=== PATIENT | male | born 1955 | race Caucasian/White ===

== ENCOUNTER 2021-06-05 12:38 | Emergency (ER) | payer BC, SELFPAY ==
[2021-06-05] VITALS (8 sets, daily range): BP systolic 113–160; BP diastolic 81–101; PULSE 55–99; RESP 16–18; TEMP 36.2; O2SAT 95–99; BMI 24.3
--- NOTE | 2021-06-05 13:05 | CTR_ITS ---
PROCEDURE INFORMATION: Exam: CTA Chest With Contrast Exam date and time: 06/05/2021 1:05 PM Age: 65 years old Clinical indication: Shortness of breath; Patient HX: Weakness w lle dvt; Additional info: L le dvt; Fatigue, SOB TECHNIQUE: Imaging protocol: Computed tomographic angiography of the chest with contrast. 3D rendering (Not supervised by radiologist): MIP and/or 3D reconstructed images were created by the technologist. Radiation optimization: All CT scans at this facility use at least one of these dose optimization techniques: automated exposure control; mA and/or kV adjustment per patient size (includes targeted exams where dose is matched to clinical indication); or iterative reconstruction. Contrast material: OMNI 350; Contrast volume: 74 ml; Contrast route: INTRAVENOUS (IV); COMPARISON: CR (CHEST, ) 06/05/2021 1:21 PM RADIATION DOSE METRICS: Total DLP (mGy-cm): 576.62 FINDINGS: Pulmonary arteries: Normal. No pulmonary emboli. Aorta: Unremarkable. No aortic aneurysm. No aortic dissection. Lungs: [id number] centrilobular and paraseptal emphysematous changes of the lungs noted in the upper lobes. Mild bilateral bronchiectasis at the hilum. No consolidation. 4 mm pulmonary nodule in the right upper lobe series 2, image 117. No masses. Pleural spaces: Unremarkable. No pneumothorax. No pleural effusion. Heart: Unremarkable. No cardiomegaly. No pericardial effusion. Lymph nodes: Unremarkable. No enlarged lymph nodes. Bones/joints: No acute fracture. Soft tissues: Unremarkable. CT/CT angio chest PE protcl [id number] IMPRESSION: 1. Negative for pulmonary embolism. No acute intrathoracic findings. 2. Bwsx-kh-eyfwafwu emphysematous changes of the upper lobes. 4 mm pulmonary nodule in the right upper lobe. Per Fleischner criteria would recommend 12 month follow-up CT chest to evaluate for interval change. Radiation Dose CTDIVOL = (mGy): DLP = 576.62 (mGy-cm)
--- NOTE | 2021-06-05 13:05 | ECG_ITS ---
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 Measurements Intervals [place] Rate: 61 P: 33 DC: 189 QRS: 43 QRSD: 88 T: 55 QT: 401 QTc: 405 Interpretive Statements SINUS RHYTHM ST ELEVATION, PROBABLY EARLY REPOLARIZATION [ST ELEVATION WITH NORMALLY INFLECTED T-WAVE] No previous ECG available for comparison Electronically Signed On 06-05-2021 20:51:24 CDT by Flaquita Willis M.D. [id number]
--- NOTE | 2021-06-05 13:06 | ED_ITS ---
HPI - General Adult General: Chief complaint: General Medical Stated complaint: disoriteted, weak, lethargic, clot in L leg Time Seen by Provider: 06/05/21 12:50 Source: patient and family () Mode of arrival: ambulatory Limitations: no limitations History of Present Illness: HPI narrative: Patient is a nice 65-year-old male who presents to ED today along with his for complaints of severe fatigue and weakness. Patient tells me approximately a week ago he went to his PCP with concerns of some swelling and palpable lumps to his left lower extremity. He states he was diagnosed with a blood clot and placed on warfarin (states insurance would not cover Xarelto/Eliquis). He reports blood clot was provoked as he had recently had a 9-hour car ride. Patient states since that time he has felt extremely fatigued and weak. He reportedly has trouble explaining his symptoms but states he gets intermittent episodes of feeling winded and has what feels like body flushing. States sometimes he feels slightly disoriented. Patient has continued to work all week but states he has just felt very tired. He has not had any vomiting, dark stools, abdominal pain, or unusual bleeding/bruising. He had an episode of sharp chest pain this AM after coughing that just lasted a few seconds and subsided. Denies CONRAD or visual changes or trouble with gait. Onset (ago): day(s) Associated symptoms: Reports chest pain (sharp pain this AM with coughing; subsided now) and dyspnea; Deny headache(s), nausea, rash, palpitations, syncope or vomiting Review of Systems Const: Reports: fatigue; Denies: fever(s), chills, body aches, change in appetite or change in weight Eyes: Denies: change in vision, blurry vision, photophobia or floaters ENMT: Denies: throat pain, odynophagia, nasal discharge or nasal congestion Card: Reports: chest pain (sharp pain this AM with coughing; subsided now) and dyspnea on exertion; Denies: palpitations, irregular heart rhythm, edema, swelling of feet/ankles, syncope, pre-syncope or orthopnea Resp: Reports: dyspnea; Denies: productive cough, non-productive cough, pain on inspiration, hemoptysis or chest congestion GI: Denies: abdominal pain, nausea, vomiting or diarrhea : Denies: flank pain, dysuria or hematuria Musc: Reports: extremity pain (L LE) and extremity swelling (L calf); Denies: neck pain, back pain, joint pain or joint swelling Skin/Breast: Denies: rash Neuro: Denies: headache(s), numbness in extremities, weakness in extremities, sensory changes, difficulty walking, dizziness or Slurred speech present Physical Exam Const: COMMON NORMALS: no acute distress, average body habitus, patient oriented x3, no limitations, healthy appearing, alert and well nourished ORIENTATION/CONSCIOUSNESS: Yes oriented to person, Yes oriented to place and Yes oriented to time HENMT: COMMON NORMALS: normocephalic and atraumatic HEAD & SCALP: normocephalic and atraumatic Chest: COMMONS NORMALS: normal inspection of the chest and normal palpation of entire chest wall Resp: COMMON NORMALS: normal respiratory effort and clear to auscultation bilaterally AUSCULTATION: clear to auscultation bilaterally Cardio: COMMON NORMALS: regular rate and regular rhythm RATE: regular rate RHYTHM: regular rhythm GI: COMMON NORMALS: Normal to inspection, nondistended, normoactive bowel sounds present, Soft to palpation, non-tender, No hepatosplenomegaly present and no masses PALPATION: Yes Soft to palpation and Yes No hepatosplenomegaly present Extremity: GENERAL: Yes normal exam except as noted OTHER: varicosities to bilateral LEs; TTP and swelling noted to L calf; TTP along medial thigh Neuro: ZULLY COMA SCALE: document GCS findings Zully coma scale eye opening: Spontaneous [place] coma scale verbal response: Orientated Zully coma scale motor response: Obey commands Zully coma scale total score: 15 COMMON NORMALS: patient oriented x3, CN's II-XII intact bilaterally, moves all extremities, no focal motor deficits, no sensory deficits noted and gait normal SENSORIUM/ORIENTATION: Yes alert, Yes oriented to person, Yes oriented to place and Yes oriented to time SPEECH: speech normal GAIT: Yes Normal gait present MOTOR EXAM: 5/5 motor strength present throughout Skin: COMMON NORMALS: no rashes or lesions noted GENERAL SKIN EXAM: no rashes or lesions noted TRAUMA: no lacerations or abrasions Course Vital Signs: Vital signs: Vital Signs Temperature 97.2 F L 06/05/21 12:39 Pulse Rate 60 06/05/21 17:00 Respiratory Rate 18 06/05/21 17:00 Blood Pressure 132/90 06/05/21 17:00 Pulse Oximetry 98 06/05/21 17:00 MDM - General Adult MDM Narrative: Medical decision making narrative: Patient here with complaints of generalized fatigue. He has no acute neurologic deficits on his exam. He reportedly was diagnosed with a left lower extremity DVT approximately a week ago and placed on warfarin. Ultrasound results unfortunately cannot be verified as it was completed at a clinic in [place] that is not open on Saturdays. His INR today is therapeutic. Patient's vital signs are stable. His labs including CBC, CMP, CPK, troponin are non concerning. EKG shows no ischemic changes. CXR is normal. CTA imaging obtained secondary to known left lower extremity DVT and complaints of feeling winded . This was negative for pulmonary embolus. Incidental small right upper lobe nodule noted-patient made aware of results to discuss with PCP. His rapid COVID is negative. At this time I feel patient is stable for discharge from the ED but I did recommend following up with primary care for further evaluation-patient verbalizes agreement. Return to ED precautions given. Lab Data: Labs: Lab Results 06/05/21 06/05/21 06/05/21 Range/Units 13:24 13:24 13:24 WBC 7.4 (4.0-10.0) 10^3/ uL RBC 5.49 H (4.1-5.3) 10^6/u L Hgb 16.0 (11.7-16.6) g/dL Hct 47.5 (42.0-52.0) % MCV 86.5 (80-94) fl MCH 29.1 (28.0-34.0) pg MCHC 33.7 (30.0-36.0) g/dL RDW 11.6 L (12.1-15.1) % Plt Count 217 (130-400) 10^3/c mm MPV 9.6 (7.4-10.4) fL Neut % (Auto) 68.8 % Lymph % (Auto) 16.7 % [place] % (Auto) 6.5 % Eos % (Auto) 6.9 % Baso % (Auto) 0.8 % Neut # (Auto) 5.06 (1.8-7.7) 10^3/u L Lymph # (Auto) 1.2 (0.8-4.8) 10^3/u L [place] # (Auto) 0.5 (0.2-0.9) 10^3/u L Eos # (Auto) 0.5 (0.0-0.8) 10^3/u L Baso # (Auto) 0.1 (0.0-0.1) 10^3/u L Nucleated RBC % (a uto) 0 % Nucleated RBCs # 0.0 /100WBC PT 26.10 H (12.1-14.9) SECO NDS INR 2.34 H (0.8-1.2) Sodium 140 (136-145) mmol/L Potassium 4.0 (3.5-5.1) mmol/L Chloride 106 (98-107) mmol/L Carbon Dioxide 24 (22-29) mmol/L Anion Gap 14.0 (5-19) BUN 23 (8-23) mg/dL Creatinine 0.7 (0.7-1.2) mg/dL GFR Calculation 113.9 (90-130) mL/min Glucose 104 (65-115) mg/dL Calculated Osmolal ity 294 (285-295) mOsm/k g Calcium 9.1 (8.5-10.5) mg/dL Total Bilirubin 0.2 (0.15-1.2) mg/dL AST 29 (0-40) U/L ALT 22 (0-41) U/L Alkaline Phosphata se 87 (40-130) IU/L Creatine Kinase 219 (39-308) U/L CK-MB (CK-2) 5.8 (0-10.4) ng/mL CK-MB (CK-2) Rel I ndex (0.0-5.3) % Troponin T Baselin e (0-15) ng/L Troponin T 120 Min [place] (0-15) ng/L Delta Troponin T (0-10) ABS# Total Protein 7.2 (6.6-8.7) g/dL Albumin 4.4 (3.5-5.2) g/dL Globulin 2.8 (1.3-4.6) g/dL SARS-CoV-2 Ag (Rap id) (Negative) 06/05/21 06/05/21 06/05/21 Range/Units 13:24 13:24 15:43 WBC (4.0-10.0) 10^3/ uL RBC (4.1-5.3) 10^6/u L Hgb (11.7-16.6) g/dL Hct (42.0-52.0) % MCV (80-94) fl MCH (28.0-34.0) pg MCHC (30.0-36.0) g/dL RDW (12.1-15.1) % Plt Count (130-400) 10^3/c mm MPV (7.4-10.4) fL Neut % (Auto) % Lymph % (Auto) % [place] % (Auto) % Eos % (Auto) % Baso % (Auto) % Neut # (Auto) (1.8-7.7) 10^3/u L Lymph # (Auto) (0.8-4.8) 10^3/u L [place] # (Auto) (0.2-0.9) 10^3/u L Eos # (Auto) (0.0-0.8) 10^3/u L Baso # (Auto) (0.0-0.1) 10^3/u L Nucleated RBC % (a uto) % Nucleated RBCs # /100WBC PT (12.1-14.9) SECO NDS INR (0.8-1.2) Sodium (136-145) mmol/L Potassium (3.5-5.1) mmol/L Chloride (98-107) mmol/L Carbon Dioxide (22-29) mmol/L Anion Gap (5-19) BUN (8-23) mg/dL Creatinine (0.7-1.2) mg/dL GFR Calculation (90-130) mL/min Glucose (65-115) mg/dL Calculated Osmolal ity (285-295) mOsm/k g Calcium (8.5-10.5) mg/dL Total Bilirubin (0.15-1.2) mg/dL AST (0-40) U/L ALT (0-41) U/L Alkaline Phosphata se (40-130) IU/L Creatine Kinase (39-308) U/L CK-MB (CK-2) (0-10.4) ng/mL CK-MB (CK-2) Rel I ndex (0.0-5.3) % Troponin T Baselin e 12 (0-15) ng/L Troponin T 120 Min [place] 13.24 (0-15) ng/L Delta Troponin T 1.24 (0-10) ABS# Total Protein (6.6-8.7) g/dL Albumin (3.5-5.2) g/dL Globulin (1.3-4.6) g/dL SARS-CoV-2 Ag (Rap id) Negative (Negative) Imaging Data^: CXR: Radiologist's impression: [facility] [address] [place] [id number] [place], [place] [address]QHsd ReportSigned Patient: Deneen Samaniego #: [id number]: 1955cct#:[id number]/Sex: 65 / MADM Date: 06/05/21Loc: ERRoom/Bed:Attending Dr: Ordering Provider/Ordering MD: Lary Hernandez Date of Service: 06/05/21 Procedure(s): XR chest 1V portable [id number] Accession Number(s): [id number] Report Number: [id number] PROCEDURE INFORMATION: Exam: XR Chest Exam date and time: 06/05/2021 1:05 PM Age: 65 years old Clinical indication: Shortness of breath and other: Weakness; Patient HX: C/O weakness and SOB; Additional info: Chest pain, SOB TECHNIQUE: Imaging protocol: XR of the chest. Views: 1 view. COMPARISON: No relevant prior studies available. FINDINGS: Lungs: Mild bronchiectasis noted at the right hilar region. No consolidation. Pleural spaces: Unremarkable. No pleural effusion. No pneumothorax. Heart/Mediastinum: Unremarkable. No cardiomegaly. Bones/joints: Unremarkable. XR/XR chest 1V portable [id number] IMPRESSION: No acute findings. Dictated By:Noble Kaplan DOSigned By:Noble Kaplan DOSigned Date/Time:06/05/21 1448DD/ 1446 CTA Chest: My impression: Report not generated in [employer]-had to be printed from [employer]. Radiologist's impression: FINDINGS: Pulmonary arteries: Normal. No pulmonary emboli. Aorta: Unremarkable. No aortic aneurysm. No aortic dissection. Lungs: [id number] centrilobular and paraseptal emphysematous changes of the lungs noted in the upper lobes. Mild bilateral bronchiectasis at the hilum. No consolidation. 4 mm pulmonary nodule in the right upper lobe series 2, image 117. No masses. Pleural spaces: Unremarkable. No pneumothorax. No pleural effusion. Heart: Unremarkable. No cardiomegaly. No pericardial effusion. Lymph nodes: Unremarkable. No enlarged lymph nodes. Bones/joints: No acute fracture. Soft tissues: Unremarkable. IMPRESSION: 1. Negative for pulmonary embolism. No acute intrathoracic findings. 2. [id number]-kwklmkqb emphysematous changes of the upper lobes. 4 mm pulmonary nodule in the right upper lobe. Per Fleischner criteria would recommend 12 month follow-up CT chest to evaluate for interval change. EKG Data^: EKG 1: EKG interpretation date: 06/05/21 EKG interpretation time: 14:08 Interpretation: Sinus rhythm Rate 61 ST elevation consistent with early repolarization Computer generated interpretation: Chest X-Ray 06/05/21 13:05 IMPRESSION: No acute findings. EKG 2: EKG interpretation date: 06/05/21 EKG interpretation time: 15:06 Interpretation: Sinus rhythm Rate 53 ST elevation consistent with early repolarization No changes when compared to EKG performed earlier on same visit Computer generated interpretation: Chest X-Ray 06/05/21 13:05 IMPRESSION: No acute findings. Discharge Plan Discharge Patient Disposition: Home Clinical Impression: Fatigue Qualifiers: Fatigue type: unspecified Qualified Code(s): R53.83 - Other fatigue Condition: Stable Prescriptions: No Action warfarin 5 mg tablet 5 mg PO DAILY RF: 0 warfarin 1 mg tablet 1 mg PO .MONDAY AND MONDAY RF: 0 Discharge Orders: Discharge ED (Routine); Ordered 06/05/21 Ordered By: Lary Hernandez Referrals: Juan R Poe [Primary Care Provider] - Patient Instructions: Fatigue (ED) Activity Restrictions/Additional Instructions: As we discussed please follow-up with your primary care provider next week for re-evaluation and further evaluation of your fatigue. As we discussed your INR is therapeutic. Please continue your current dose of warfarin. As we discussed your CTA showed a very small right upper lung nodule with recommendations for repeat CT in 12 months. 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
[2021-06-05 13:42] LABS: Basophils # 0.1 10^3/uL (0.0-0.1); Basophils % 0.8 %; Eosinophils # 0.5 10^3/uL (0.0-0.8); Eosinophils % 6.9 %; Hematocrit 47.5 % (42.0-52.0); Lymphocytes # 1.2 10^3/uL (0.8-4.8); Lymphocytes % 16.7 %; Mean Corpuscular HGB Conc 33.7 g/dL (30.0-36.0); Mean Corpuscular Hemoglobin 29.1 pg (28.0-34.0); Mean Corpuscular Volume 86.5 fl (80-94); Mean Platelet Volume 9.6 fL (7.4-10.4); Monocytes # 0.5 10^3/uL (0.2-0.9); Monocytes % 6.5 %; Neutrophils # 5.06 10^3/uL (1.8-7.7); Neutrophils % 68.8 %; Nucleated Red Blood Cells % 0 %; Platelet Count 217 10^3/cmm (130-400); Red Blood Count 5.49 10^6/uL (4.1-5.3); Red Cell Distribution Width 11.6 % (12.1-15.1); White Blood Count 7.4 10^3/uL (4.0-10.0)
[2021-06-05 14:12] LABS: SARS Covid-2 Antigen Negative (Negative); Troponin(5th) Baseline 12 ng/L (0-15)
[2021-06-05] MEDS: iohexol 350 mg/mL 100 mL Btl IV (14:22)
[2021-06-05 14:25] LABS: INR 2.34 (0.8-1.2)
[2021-06-05 14:39] LABS: Alanine Aminotransferase 22 U/L (0-41); Albumin Level 4.4 g/dL (3.5-5.2); Alkaline Phosphatase 87 IU/L (40-130); Aspartate Amino Transferase 29 U/L (0-40); Blood Urea Nitrogen 23 mg/dL (8-23); Calcium 9.1 mg/dL (8.5-10.5); Carbon Dioxide 24 mmol/L (22-29); Chloride 106 mmol/L (98-107); Creatine Phosphokinase 219 U/L (39-308); Creatinine Clr Calc Pharmacy 110.5457; Globulin 2.8 g/dL (1.3-4.6); Glomerular Filtration Rate 113.9 mL/min (90-130); Glucose 104 mg/dL (65-115); Osmolality Calculated 294 mOsm/kg (285-295); Sodium 140 mmol/L (136-145); Total Bilirubin 0.2 mg/dL (0.15-1.2); Total Protein 7.2 g/dL (6.6-8.7)
--- NOTE | 2021-06-05 15:05 | ECG_ITS ---
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 Measurements Intervals [place] Rate: 53 P: 38 ID: [id number] QRS: 39 QRSD: 92 T: 49 QT: 416 QTc: 393 Interpretive Statements SINUS BRADYCARDIA Compared to ECG 06/05/2021 14:08:59 Sinus rhythm no longer present ST (T wave) deviation no longer present Early repolarization no longer present Electronically Signed On 06-05-2021 20:53:56 CDT by Flaquita Willis M.D. [id number]
[2021-06-05 15:10] LABS: CKMB 5.8 ng/mL (0-10.4)
[2021-06-05 16:41] LABS: Troponin 5 2HR 13.24 ng/L (0-15); Troponin 5 2HR Delta 1.24 ABS# (0-10)
== END 2021-06-05 17:00 | disposition home or self-care (01) ==
PROVIDERS: Emergency Provider Physician Assistant; PCP Physician Assistant Medical
DX: R53.83 Other fatigue (principal); Z79.01 Long term (current) use of anticoagulants; Z86.718 Personal history of other venous thrombosis and embolism; Z20.822 Contact with and (suspected) exposure to COVID-19
CPT/HCPCS: 36415; 71045; 71275; 80053; 82550; 82553; 84484; 85025; 85610; 87426; 93005; 99283; Q9967

== ENCOUNTER 2022-04-17 18:14 | Emergency (ER) | payer BC, SELFPAY ==
[2022-04-17 18:37] VITALS: BP 158/96; PULSE 69; RESP 16; TEMP 36.3; O2SAT 98; BMI 23.9
[2022-04-17 18:51] VITALS: BP 156/94; PULSE 61; RESP 16; O2SAT 98
--- NOTE | 2022-04-17 18:54 | CTR_ITS ---
PROCEDURE INFORMATION: Exam: CT Head Without Contrast Exam date and time: 04/17/2022 7:07 PM Age: 66 years old Clinical indication: Pain; Headache not specified; Patient HX: H/a, RT sided head and arm sensations for 3 days. Hot flashes; Paresthesias TECHNIQUE: Imaging protocol: Computed tomography of the head without contrast. Radiation optimization: All CT scans at this facility use at least one of these dose optimization techniques: automated exposure control; mA and/or kV adjustment per patient size (includes targeted exams where dose is matched to clinical indication); or iterative reconstruction. COMPARISON: No relevant prior studies available. RADIATION DOSE METRICS: Total DLP (mGy-cm): 790.5 FINDINGS: Brain: Periventricular and subcortical white matter low densities are present which at this age likely represent microvascular ischemic change. Cerebral ventricles: No ventriculomegaly. Paranasal sinuses: There is mucosal thickening of the paranasal sinuses. A small air-fluid levels present in the right frontal sinus. Mastoid air cells: Right mastoid air cells are underpneumatized. Bones/joints: Unremarkable. No acute fracture. Soft tissues: Unremarkable. Vasculature: Calcified plaque is present within the carotid siphons. Other findings: No evidence for large acute ischemic infarction. Please note acute ischemia can be occult by head CT. CT/CT head wo con* [id number] IMPRESSION: 1. There are senescent changes of the brain as described above. No evidence for large acute ischemic infarction or acute intracranial injury. 2. Acute right frontal sinusitis. There is mucosal thickening of the paranasal sinuses.
--- NOTE | 2022-04-17 18:55 | ECG_ITS ---
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 Measurements Intervals [place] Rate: 53 P: 39 IN: 174 QRS: 47 QRSD: 86 T: 60 QT: 399 QTc: 377 Interpretive Statements SINUS BRADYCARDIA Compared to ECG 06/05/2021 15:06:56 No significant changes Electronically Signed On 04-18-2022 8:40:20 CDT by Niall Durán M.D. [id number]
--- NOTE | 2022-04-17 19:07 | ED_ITS ---
HPI - Neuro Symptoms/Deficit General: Chief Complaint: Neuro Symptoms/Deficit Stated Complaint: Hot flashes/headache Time Seen by Provider: 04/17/22 18:44 Source: patient Mode of arrival: ambulatory Limitations: no limitations History of Present Illness: 66-year-old male who who states that since the fi rst 2 days ago he has been having some intermittent right-sided headaches along with some numbness down his right arm. States he seemed to be intermittent in nature. He denies any severe headaches denies any headaches being the worst headaches of his life. States he also discusses tingling feeling down his right arm. Denies any other neurodeficits denies any change in vision. He denies any fevers but has felt flushed. He has no symptoms currently denies headache currently and has no numbness currently Associated symptoms: Reports headache(s); Deny chest pain, nausea or vomiting Review of Systems Const: Denies: fever(s), chills, body aches or change in appetite Eyes: Denies: blurry vision or eye discomfort ENMT: Denies: throat pain or dental pain Card: Denies: chest pain Resp: Denies: dyspnea GI: Denies: abdominal pain, nausea, vomiting or diarrhea : Denies: dysuria Musc: Denies: neck pain or back pain Skin/Breast: Denies: rash Neuro: Reports: headache(s), numbness in extremities and sensory changes Psych: Denies: depression Lico/Lymph: Denies: easy bruising All/Imm: Denies: urticaria NIH stroke score NIHSS: Level Of Consciousness - 1a: 0 Level Of Consciousness Questions - 1b: Both Correct Level Of Consciousness Commands - 1c: Both Correct Best Gaze - 2: Normal Visual [place] - 3: No Visual Loss Facial Palsy - 4: Normal Motor Arm Right - 5: No Drift Motor Arm Left - 5: No Drift Motor Leg Right - 6: No Drift Motor Leg Left - 6: No Drift Limb Ataxia - 7: Absent Sensory - 8: Normal Best Language - 9: No Aphasia Dysarthia - 10: Normal Extinction And Inattention - 11: 0 Score: Total Score: 0 Physical Exam Const: COMMON NORMALS: no acute distress, patient oriented x3 and healthy appearing HENMT: COMMON NORMALS: normocephalic and atraumatic HEAD & SCALP: normocephalic and atraumatic OTHER: no tenderness along temporal arteries Eye: COMMON NORMALS: Equal, round and reactive pupils present and EOMs intact bilaterally PUPIL: Yes Equal, round and reactive pupils present Neck/C-Spine: COMMON NORMALS: full ROM and supple Chest: COMMONS NORMALS: normal inspection of the chest and normal palpation of entire chest wall Resp: COMMON NORMALS: normal respiratory effort, No retractions, No use of accessory muscles and clear to auscultation bilaterally AUSCULTATION: clear to auscultation bilaterally Cardio: COMMON NORMALS: regular rate, regular rhythm and No murmurs present (Cardio) RATE: regular rate RHYTHM: regular rhythm GI: COMMON NORMALS: Normal to inspection, nondistended, normoactive bowel sounds present, Soft to palpation, non-tender and no masses PALPATION: Yes Soft to palpation Extremity: COMMON NORMALS: normal to inspection and full ROM Neuro: COMMON NORMALS: patient oriented x3, moves all extremities and no focal motor deficits CRANIAL NERVES: Yes CN normal except as noted SPEECH: speech normal MOTOR EXAM: 5/5 motor strength present throughout Psych: COMMON NORMALS: mental status grossly normal, Normal thought process present and cooperative THOUGHT PROCESS: Normal thought process present Skin: COMMON NORMALS: no rashes or lesions noted and no wounds GENERAL SKIN EXAM: no rashes or lesions noted Course Vital Signs: Vital signs: Vital Signs Temperature 97.4 F L 04/17/22 18:37 Pulse Rate 61 04/17/22 18:51 Respiratory Rate 16 04/17/22 18:51 Blood Pressure 156/94 04/17/22 18:51 Pulse Oximetry 98 04/17/22 18:51 MDM - Neuro Symptoms/Deficit Medical Decision Making Patient presents here with some right-sided headaches along with some paresthesias his CT did show right maxillary sinusitis we will treat with Augmentin. He is no symptoms here currently no signs of a stroke no tenderness over his temporal artery no signs of temporal arteritis he is stable for discharge he is to follow-up his PCP in 2 to 4 days if he has any return of symptoms he is return to the ER he understands agrees to plan. Lab Data : 04/17/22 19:14 04/17/22 19:[address] 04/17/22 18:54 IMPRESSION: 1. There are senescent changes of the brain as described above. No evidence for large acute ischemic infarction or acute intracranial injury. 2. Acute right frontal sinusitis. There is mucosal thickening of the paranasal sinuses. Laboratory Results WBC 7.2 10^3/uL (4.0-10.0) 04/17/22 19:14 RBC 5.19 10^6/uL (4.1-5.3) 04/17/22 19:14 Hgb 15.4 g/dL (11.7-16.6) 04/17/22 19:14 Hct 44.9 % (42.0-52.0) 04/17/22 19:14 MCV 86.5 fl (80-94) 04/17/22 19:14 MCH 29.7 pg (28.0-34.0) 04/17/22 19:14 MCHC 34.3 g/dL (30.0-36.0) 04/17/22 19:14 RDW 12.0 % (12.1-15.1) L 04/17/22 19:14 Plt Count 202 10^3/cmm (130-400) 04/17/22 19:14 MPV 9.7 fL (7.4-10.4) 04/17/22 19:14 Neut % (Auto) 58.6 % 04/17/22 19:14 Lymph % (Auto) 21.1 % 04/17/22 19:14 [place] % (Auto) 8.3 % 04/17/22 19:14 Eos % (Auto) 10.5 % 04/17/22 19:14 Baso % (Auto) 1.1 % 04/17/22 19:14 Neut # (Auto) 4.24 10^3/uL (1.8-7.7) 04/17/22 19:14 Lymph # (Auto) 1.5 10^3/uL (0.8-4.8) 04/17/22 19:14 [place] # (Auto) 0.6 10^3/uL (0.2-0.9) 04/17/22 19:14 Eos # (Auto) 0.8 10^3/uL (0.0-0.8) 04/17/22 19:14 Baso # (Auto) 0.1 10^3/uL (0.0-0.1) 04/17/22 19:14 Nucleated RBC % (auto) 0 % 04/17/22 19:14 Nucleated RBCs # 0.0 /100WBC 04/17/22 19:14 PT 13.80 SECONDS (12.1-14.9) 04/17/22 19:14 INR 1.03 (0.8-1.2) 04/17/22 19:14 Sodium 140 mmol/L (136-145) 04/17/22 19:14 Potassium 3.8 mmol/L (3.5-5.1) 04/17/22 19:14 Chloride 104 mmol/L (98-107) 04/17/22 19:14 Carbon Dioxide 27 mmol/L (22-29) 04/17/22 19:14 Anion Gap 12.8 (5-19) 04/17/22 19:14 BUN 18 mg/dL (8-23) 04/17/22 19:14 Creatinine 0.9 mg/dL (0.7-1.2) 04/17/22 19:14 GFR Calculation 85.0 mL/min (90-130) L 04/17/22 19:14 Glucose 96 mg/dL (65-115) 04/17/22 19:14 Calculated Osmolality 292 mOsm/kg (285-295) 04/17/22 19:14 Calcium 9.6 mg/dL (8.5-10.5) 04/17/22 19:14 Total Bilirubin 0.2 mg/dL (0.15-1.2) 04/17/22 19:14 AST 22 U/L (0-40) 04/17/22 19:14 ALT 19 U/L (0-41) 04/17/22 19:14 Alkaline Phosphatase 83 IU/L (40-130) 04/17/22 19:14 Total Protein 6.9 g/dL (6.6-8.7) 04/17/22 19:14 Albumin 4.5 g/dL (3.5-5.2) 04/17/22 19:14 Globulin 2.4 g/dL (1.3-4.6) 04/17/22 19:14 TSH 1.71 uIU/mL (0.27-4.20) 04/17/22 19:14 EKG Data EKG 1: I personally reviewed and interpreted this EKG as follows: EKG interpretation date: 04/17/22 EKG interpretation time: 19:16 Interpretation: sinus elizabeth hr [address] or t wave abnormalities qrs 86 qtc 383 Discharge Plan Discharge Patient Disposition: Home Clinical Impression: Right maxillary sinusitis, Paresthesia Condition: Stable Prescriptions: New Augmentin 500-125 mg tablet 1 tab PO BID Qty: 14 0RF No Action warfarin 5 mg tablet 5 mg PO DAILY 0RF Rx Instructions: TAKE 5 MG PO ONCE DAILY warfarin 1 mg tablet 1 mg PO .MONDAY AND MONDAY 0RF Rx Instructions: TAKE 1MG ON MONDAY AND MONDAY Discharge Orders: Discharge ED (Routine); Ordered 04/17/22 Ordered By: Juan Pablo Sheppard Referrals: Juan R Poe [Primary Care Provider] - 1-3 days Discharge Diet: Advance as tolerated Discharge Activity: Resume usual activity Patient Instructions: Sinusitis (ED), Paresthesia (ED) Coding Level of Care Code ED 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
[2022-04-17 19:20] LABS: Basophils # 0.1 10^3/uL (0.0-0.1); Basophils % 1.1 %; Eosinophils # 0.8 10^3/uL (0.0-0.8); Eosinophils % 10.5 %; Hematocrit 44.9 % (42.0-52.0); Hemoglobin 15.4 g/dL (11.7-16.6); Lymphocytes # 1.5 10^3/uL (0.8-4.8); Lymphocytes % 21.1 %; Mean Corpuscular HGB Conc 34.3 g/dL (30.0-36.0); Mean Corpuscular Hemoglobin 29.7 pg (28.0-34.0); Mean Corpuscular Volume 86.5 fl (80-94); Mean Platelet Volume 9.7 fL (7.4-10.4); Monocytes # 0.6 10^3/uL (0.2-0.9); Monocytes % 8.3 %; Neutrophils # 4.24 10^3/uL (1.8-7.7); Neutrophils % 58.6 %; Nucleated Red Blood Cells % 0 %; Platelet Count 202 10^3/cmm (130-400); Red Blood Count 5.19 10^6/uL (4.1-5.3); White Blood Count 7.2 10^3/uL (4.0-10.0)
[2022-04-17 19:39] LABS: INR 1.03 (0.8-1.2)
[2022-04-17 19:48] LABS: Albumin Level 4.5 g/dL (3.5-5.2); Alkaline Phosphatase 83 IU/L (40-130); Anion Gap 12.8 (5-19); Aspartate Amino Transferase 22 U/L (0-40); Blood Urea Nitrogen 18 mg/dL (8-23); Calcium 9.6 mg/dL (8.5-10.5); Carbon Dioxide 27 mmol/L (22-29); Chloride 104 mmol/L (98-107); Globulin 2.4 g/dL (1.3-4.6); Glucose 96 mg/dL (65-115); Osmolality Calculated 292 mOsm/kg (285-295); Potassium 3.8 mmol/L (3.5-5.1); Sodium 140 mmol/L (136-145); Thyroid Stimulating Hormone 1.71 uIU/mL (0.27-4.20); Total Bilirubin 0.2 mg/dL (0.15-1.2); Total Protein 6.9 g/dL (6.6-8.7)
[2022-04-17 19:59] LABS: Alanine Aminotransferase 19 U/L (0-41)
[2022-04-17 21:00] VITALS: BP 142/86; PULSE 61; RESP 18; TEMP 36.7; O2SAT 98; O2SAT 99
== END 2022-04-17 21:02 | disposition home or self-care (01) ==
PROVIDERS: Emergency Provider Emergency Medicine; PCP Physician Assistant Medical
DX: J32.0 Chronic maxillary sinusitis (principal); R20.2 Paresthesia of skin; Z79.01 Long term (current) use of anticoagulants
CPT/HCPCS: 70450; 80053; 84443; 85025; 85610; 93005; 99283

== ENCOUNTER 2022-09-02 05:32 | Day surgery (SDC) | payer BC, SELFPAY ==
[2022-08-31 14:30] VITALS: BMI 23.2
[2022-09-02 06:04] VITALS: BP 122/95; PULSE 72; RESP 18; TEMP 36.1; O2SAT 99
[2022-09-02] MEDS: sodium chloride 0.9% 1,000 ML 30 ML IV (06:10)
--- NOTE | 2022-09-02 06:11 | W.PM.OPSFHP ---
Same Day Surgery H&P Indication for Procedure/HPI DATE OF PROCEDURE: September 02, 2022 CHIEF COMPLAINT/INDICATIONFOR SURGICAL PROCEDURE: I am here for colonoscopy PREOP DIAGNOSIS: History of colon polyps/family history of colon cancer PLANNED PROCEDURE: Operation Date: 09/02/22 07:00 Proposed Procedures p Colonoscopy 97444,Z86.010,Z80.0(Not Applicable) - Andrew Moses MD 06/13/2022 This is a pleasant 66 years old gentleman presents to my practice with history of as he did have a colonoscopy back in 2014.? In addition he gives a history of one of his sisters had cancerous polyps and another sister had colon cancer at age of 62.? In addition to his father had colon cancer at age of 70.? Patient denies bleeding per rectum and is here today to discuss surveillance colonoscopy. 09/02/2022 Patient comes today as he has been scheduled for surveillance colonoscopy. ROS All systems have been reviewed negative except as for the above or per problem list. Medications/Allergies* Allergies/Adverse Reactions Allergy/AdvReac Type Severity Reaction Status Date / Time prednisone Allergy Unknown Verified 09/02/22 06:11 Pertinent History/Comorbid Conditions* Medical History (Updated 06/13/22 @ 08:53 by Andrew Moses MD) Family history of malignant melanoma of skin Head and face pain History of colon polyps History of DVT in adulthood Left lower extremity DVT April 2021 after [address] ride Neuropathy Social History Smoking and tobacco status: former smoker Pertinent Exam Findings alert, oriented x 3, regular rate & rhythm and procedure specific exam findings (Abdominal exam nontender nondistended soft) Recommendations Surgery/Procedure today (Colonoscopy with possible biopsy) Coding Level of Care Code Acute Clothing Pattern Preparer for Sita Evans
--- NOTE | 2022-09-02 06:45 | ANES.PREANE2 ---
Pre-Anesthetic Assessment Height/Weight: Height 1.78 m Weight 73.482 kg Temp Pulse Resp BP Pulse Ox O2 Del Method 97 F L 72 18 122/95 99 09/02/22 06:04 09/02/22 06:04 09/02/22 06:04 09/02/22 06:04 09/02/22 06:04 09/02/22 06:04 Preop Diagnosis: History of colon polyps/family history of colon cancer Operation Date: 09/02/22 07:00 Proposed Procedures p Colonoscopy 22242,Z86.010,Z80.0(Not Applicable) - Andrew Moses MD Familial anesthetic complications: none Was Beta Debra taken within 24 hours: N/A Last intake: Intake Last Liquid Date 09/01/22 Last Liquid Time 22:00 Last Solid Date 08/31/22 Last Solid Time 22:00 Social No alcohol and No tobacco Airway Submandibular: within normal limits Cervical ROM: within normal limits Mallampati: Class II Dentition: false Comments: Comments: upper and lower plate Pulmonary None reported CV/HEM Deep Vein Thrombosis None reported Hepatic None reported GI None reported Metabolic None reported Musc/skel None reported METS >4 Neuropsych None reported Anesthetic Plan ASA status: 1 Anesthesia: MAC Medications/Allergies Home Medications Medication Instructions Recorded Confirmed Last Taken Type aspirin 81 mg tablet,delayed 81 mg PO DAILY circulation #90 tabs 04/22/22 08/31/22 08/30/22 Rx release Allergies Allergy/AdvReac Type Severity Reaction Status Date / Time prednisone Allergy Unknown Verified 09/02/22 06:11 Current Medications Generic Name Dose Route Start Last Admin Trade Name Chrisq PRN Reason Stop Dose Admin Sodium Chloride 1,000 mls @ 30 mls/hr 09/02/22 06:00 09/02/22 06:10 Sodium Chloride 0.9% IV 09/03/22 05:59 30 mls/hr .Q24H SHEREEN Administration PFSH Anesthesia Medical History Family history of malignant melanoma of skin Head and face pain History of colon polyps History of DVT in adulthood Left lower extremity DVT April 2021 after [address] ride Neuropathy Social History Smoking and tobacco status: former smoker Data Anesthesia Cardiac Studies: No Data to Display
[2022-09-02 07:18] VITALS: BP 89/53; PULSE 60; RESP 18; TEMP 36.1; O2SAT 99
[2022-09-02 07:23] VITALS: BP 93/57; PULSE 56; RESP 18; O2SAT 100
--- NOTE | 2022-09-02 12:40 | ANE.PACU2 ---
Inpatient post-anesthesia follow up: Airway intact: Yes Vital signs: Temperature 97.0 F Pulse Rate 56 Respiratory Rate 18 Blood Pressure 93/57 Pulse Oximetry 100 Oxygen Delivery Me thod Room Air Oxygen Flow Rate Fraction of Inspir ed Oxygen Hydration adequate: Yes Nausea and vomiting: No Pain level: 1 Mental status: Baseline
== END 2022-09-02 07:55 | disposition home or self-care (01) ==
PROVIDERS: PCP Family Medicine Adult Medicine; Visit Provider Surgery
PROC: 0DJD8ZZ Inspection of Lower Intestinal Tract, Via Natural or Artificial Opening Endoscopic (ICD-10-PCS; CPT 45378; principal; 2022-09-02 07:00)
DX: Z12.11 Encounter for screening for malignant neoplasm of colon (principal); Z86.010 Personal history of colon polyps; Z80.0 Family history of malignant neoplasm of digestive organs; Z87.891 Personal history of nicotine dependence; Z86.718 Personal history of other venous thrombosis and embolism; K57.30 Diverticulosis of large intestine without perforation or abscess without bleeding; D12.4 Benign neoplasm of descending colon
CPT/HCPCS: 45385; J2370; J2704; J7030

== ENCOUNTER → 2024-08-15 10:39 | Outpatient (BNVA) | payer MEDICARE, SELFPAY | PROVIDERS: PCP Family Medicine Adult Medicine | DX: K57.31 Diverticulosis of large intestine without perforation or abscess with bleeding (principal) | CPT/HCPCS: 80053; 85025 ==